=== PATIENT | female | born 1965 | race Caucasian/White ===

== ENCOUNTER 2023-09-16 10:28 | Outpatient (AMB) | payer OTHER, SELFPAY ==
--- NOTE | 2023-09-16 10:26 | MHC.PC.OV ---
Vital Signs 09/16/23 10:37 Height 5 ft 5.87 in Weight 123 lb 6 oz BMI 20.0 BP 112/74 Blood Pressure Location Lt brachial Position Sitting Respiration 12 Pulse 103 H Pulse Source Pulse Oximeter Temp 98 F Temp Source Oral Pulse Oximetry (%) 98 Oxygen Delivery Method Room Air Intake Visit Reasons: new patient also discharge fu Intake Note: New patient visit Deckhand Tuna Boat Required: No Allergies No Known Allergies Allergy (Verified 09/16/23 10:34) Medication List - Last Reconciled 09/16/23 by Etelvina Barney PA-C amlodipine 2.5 mg PO DAILY duloxetine 60 mg PO DAILY Tobacco use date assessed: 09/16/23 Dental Screening Dental Screen Date: 09/16/23 Did you have a dental visit in the last 12 months?: No Did you have a dental problem in the last 6 months where you did not have access to dental care?: No Was dental information given to patient?: Patient declined (has dentures) HPI new patient also discharge fu HPI Details Pt is a 58 y/o femal ewho presents today to establish care/hospital follow up. She was previously a patient at [facility] but unfortunately, her insurance changed and she was unable to be seen there. She states that she has not seen a PCP in about 8-10 months. She reports a significant past medical history of anxiety, hypertension, alcohol and tobacco abuse. On 09/02/23 she presented to [facility] ER with complaints of rectal bleeding. She states that she had had rectal bleeding on and off for 6 months and over the last 2 months have become more persistent. On CT they did note rectal wall irregular thickening with adjacent inflammatory change. Direct visualization with endoscopy is recommended to exclude a mass. Adjacent perirectal lymph nodes noted. Liquid Stool throughout small bowel and proximal colon. Nonspecific finding but can be seen with colitis. GI saw the patient in the hospital on 09/02 and performed the colonoscopy which showed a 5 cm fungating and spontaneously bleeding mass in the distal rectum; moderate diverticulosis throughout colon. On 09/03 surgery was consulted and she had a chest CT for staging which showed no specific evidence of metastatic disease, few nonspecific pulmonary nodules measuring up to 3 mm. 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 Circumferential low rectal mass, invading the anterior internal anal sphincter and lower vagina with resulting rectovaginal fistula inferiorly. She saw oncology this Wednesday, 09/12, for the first time. She is being set up for chemo, radiation and colorectal surgery. Psych: She states she has been very anxious sense the hospitalization. She state her oncologist gave her an rx for lorazepam. She is already on cymbalta. She states that she thinks she needs to go up on the medication or change the med because she finds it unhelpful. She states that her children and her mother have been helpful and supportive with the diagnosis. She has been having some stressors because her boyfriend is not handling this well. She states that he is asked her to move out of the house because he does not want to deal with the cancer. She denies any SI/HI. She does drink daily and has been drinking for the last 10 years. She has 6 beers a day and denies any hard alcohol. She states that when she was in the hospital she did not have any withdrawal symptoms. She does not want to quit drinking or smoking. She is aware that she needs to quit drinking and states that she will meet with an addiction counselor but she is not sure if she can actually do this. [facility] Medical History Underweight Prediabetes Major depression Elevated liver enzymes Benign hypertension Alcohol abuse Surgical History (Updated 09/16/23 @ 10:29 by Lara Donaldson CMA) Hx of fusion of cervical spine Hx of tonsillectomy Social History (Updated 09/16/23 @ 10:36 by Lara Donaldson CMA) Housing: House Patient Tobacco Use Status: Current everyday Tobacco user Cigarettes Per Day: 20 Years Smoked: 30 e-Cigarette/Vaping Use: Never Used Second Hand Smoke Exposure: No Substance Use Type: Marijuana service: No Current occupational status: unemployed Cognitive needs: No Hearing needs: No Vision needs: No Questionnaire PHQ-9 Over the last 2 weeks, how often have you been bothered by any of the following problems? 1. Little interest or pleasure in doing things: more than half the days 2. Feeling down, depressed, or hopeless: more than half the days 3. Trouble falling or staying asleep, or sleeping too much: more than half the days 4. Feeling tired or having little energy: more than half the days 5. Poor appetite or overeating: more than half the days 6. Feeling bad about yourself - or that you are a failure or have let yourself or your family down: more than half the days 7. Trouble concentrating on things, such as reading the newspaper or watching television: more than half the days 8. Moving or speaking so slowly that other people could have noticed. Or the opposite - being so fidgety or restless that you have been moving around a lot more than usual: more than half the days 9. Thoughts that you would be better off or of hurting yourself in some way: not at all Total score: 16 Depression Screening Interpretation: Positive Depression Screening Follow-up: Existing condition, In treatment, New Medication prescribed and Community Mental Health Worker F/U Depression Screening Done: Yes 04454 - PHQ-9 Billing: Yes Source: Developed by Drs. Brandyn Guardado, Melina Beltrán, George Grimaldo and colleagues, with an educational ariana from [employer]. AUDIT C Alcohol Use Questionnaire (AUDIT-C) 1. How often do you have a drink containing alcohol?: 4 or more times a week (daily) 2. How many drinks containing alcohol do you have on a typical day when you are drinking?: 5 or 6 3. How often do you have six or more drinks on one occasion?: Daily or almost daily Total Score: 10 Score Reviewed/Action Taken: Yes CRYSTAL-7 AMB Questionnaire CRYSTAL-7 Feeling nervous, anxious, or on edge: 3 = Nearly every day Not being able to stop or control worryin = More than half the days Worrying too much about different things: 2 = More than half the days Trouble relaxin = More than half the days Being so restless that it is hard to sit still: 2 = More than half the days Becoming easily annoyed or irritable: 2 = More than half the days Feeling afraid as if something awful might happen: 2 = More than half the days Total CRYSTAL-7 score (0-4 normal; 5-9 mild; 10-14 moderate; 15-21 severe): 15 Source: Developed by Drs. Brandyn Guardado, Melina Beltrán, George Grimaldo and colleagues, with an educational ariana from [employer]. CRYSTAL-7 Assessment Billing CRYSTAL-7 Assessment Tool: CRYSTAL-7 Assessment 76962 Physical exam (Primary Care) Vital Signs: Last Vital Signs Temp 98 F 09/16/23 10:37 Pulse 103 H 09/16/23 10:37 Resp 12 09/16/23 10:37 BP 112/74 09/16/23 10:37 Pulse Ox 98 09/16/23 10:37 Oxygen Delivery Method Room Air 09/16/23 10:37 BMI result Body Mass Index 20.0 Tobacco/Smoking Status: Tobacco use Status Tobacco use date assessed 09/16/23 09/16/23 10:40 Patient Tobacco Use Status Current everyday Tobacco 09/16/23 10:40 e-Cigarette/Vaping Use Never Used 09/16/23 10:40 Depression Screening Interpretation: Positive Depression Screening Follow-up: Existing condition, In treatment, New Medication prescribed and Community Mental Health Worker F/U Const Orientation/consciousness: patient oriented x3 HENMT Ears: hearing grossly normal bilaterally Neck Thyroid: Thyroid normal Lymphatic: no lymphadenopathy noted Resp Auscultation: clear to auscultation bilaterally Cardio Rate: regular rate Rhythm: regular rhythm Heart sounds: S1 normal heart sound present and S2 normal heart sound present GI Inspection: Yes normal to inspection Palpation (GI): Soft to palpation and Other GI palpation findings present (nontender, no cva tenderness) Auscultation: normoactive bowel sounds Rectal Exam - Female: deferred Skin General skin exam: no rashes or lesions noted Neuro General: patient oriented x3, gait normal and no focal motor deficits Assessment and Plan Assessment & Plan (1) Alcohol abuse: Code(s): F10.10 - Alcohol abuse, uncomplicated Plan: Referral to addiction Medicine placed (2) Major depression: Code(s): F32.9 - Major depressive disorder, single episode, unspecified Plan: We will discontinue Cymbalta and start Paxil. Discussed risks and benefits and adverse effects of the medication. 3-4 week follow up. (3) Rectal cancer: Code(s): C20 - Malignant neoplasm of rectum Plan: Notes from Oncology and surgery were requested. (4) Benign hypertension: Code(s): I10 - Essential (primary) hypertension Plan: Blood pressure controlled. Continue current regimen. Orders: Orders Lipid Panel Today C20 - Malignant neoplasm of rectum, F10.10 - Alcohol abuse, uncomplicated, F32.9 - Major depressive disorder, single episode, unspecified TSH reflex Free T4 Today C20 - Malignant neoplasm of rectum, F10.10 - Alcohol abuse, uncomplicated, F32.9 - Major depressive disorder, single episode, unspecified Complete Blood Count Auto Diff Today C20 - Malignant neoplasm of rectum, F10.10 - Alcohol abuse, uncomplicated, F32.9 - Major depressive disorder, single episode, unspecified Comprehensive Met. Panel Today C20 - Malignant neoplasm of rectum, F10.10 - Alcohol abuse, uncomplicated, F32.9 - Major depressive disorder, single episode, unspecified Vitamin B12 and Folate Today C20 - Malignant neoplasm of rectum, F10.10 - Alcohol abuse, uncomplicated, F32.9 - Major depressive disorder, single episode, unspecified IRON PROFILE Today C20 - Malignant neoplasm of rectum, F10.10 - Alcohol abuse, uncomplicated, F32.9 - Major depressive disorder, single episode, unspecified Referrals Addiction Medicine Referral C20 - Malignant neoplasm of rectum, F10.10 - Alcohol abuse, uncomplicated, F32.9 - Major depressive disorder, single episode, unspecified Behavioral Health Referral C20 - Malignant neoplasm of rectum, F10.10 - Alcohol abuse, uncomplicated, F32.9 - Major depressive disorder, single episode, unspecified Medications: New paroxetine HCl (Paxil) 10 mg PO DAILY 90 tabs 0RF Coding Level of Care Code New Pt Level 4 (70156) Complex EM visit Add On G2211 Diagnoses Alcohol abuse F10.10 Major depression F32.9 Rectal cancer C20 Benign hypertension I10 Additional Codes CRYSTAL-7 Assessment Billing - CRYSTAL-7 Assessment Tool: CRYSTAL-7 Assessment 73893 ([id number])
[2023-09-16 10:37] VITALS: BP 112/74; PULSE 103; RESP 12; TEMP 36.6; O2SAT 98
== END 2023-09-16 11:49 | disposition home or self-care (01) ==
PROVIDERS: PCP Physician Assistant; Visit Provider Physician Assistant
DX: C20 Malignant neoplasm of rectum (principal); F10.10 Alcohol abuse, uncomplicated; F32.9 Major depressive disorder, single episode, unspecified; I10 Essential (primary) hypertension
CPT/HCPCS: 96127; 99204; G2211

== ENCOUNTER 2023-11-24 13:51 | Outpatient (AMB) | payer OTHER, SELFPAY ==
--- NOTE | 2023-11-24 13:53 | MHC.PC.OV ---
Vital Signs 11/24/23 13:57 Height 5 ft 5.87 in Weight 127 lb 2 oz BMI 20.6 BP 96/64 Blood Pressure Location Lt brachial Position Sitting Pulse 113 H Pulse Source Pulse Oximeter Pulse Oximetry (%) 98 Oxygen Delivery Method Room Air Intake Visit Reasons: Medication follow up Intake Note: Medication follow up. Patient states she supposed to be on Duloxetine 90 mg. She lost her medication and has been out for 2 days. Allergies No Known Allergies Allergy (Verified 11/24/23 13:54) Medication List - Last Reconciled 11/24/23 by Etelvina Barney PA-C Tobacco use date assessed: 09/16/23 Dental Screening Dental Screen Date: 09/16/23 HPI Medication follow up HPI Details Patient is a 58-year-old female who presents today for a follow up. She is relatively new here and to me. She was recently diagnosed with rectal cancer, hypertension and has a history of depression and alcohol abuse. Psych: She is on Cymbalta 90 mg however was on 60 mg but states that she increased the dose on her own. I did refer her to behavioral health and addiction Medicine. She states she thinks she needs to go up on the dosage. Denies any SI/HI. Living with her 87 y/o mother right now. States her boyfriend of 10 years told her to move out. Her son moved home to help her and they are looking for a place together. She is completely sober and does not need help with this. Onc: She is following with oncology and GI for her rectal cancer. Following with [facility] and just started chemo and radiation. 8 days into 6 weeks. States that she is so far tolerating this well. CV: Blood pressure today in the office is 92/64. She is asymptomatic. She is on amlodipine 2.5 mg which started while she was hospitalized earlier this summer. -she forgot to get labs done prior to our visit. [facility] Medical History Underweight Prediabetes Major depression Elevated liver enzymes Benign hypertension Alcohol abuse Surgical History (Updated 09/16/23 @ 10:29 by Lara Donaldson CMA) Hx of fusion of cervical spine Hx of tonsillectomy Social History (Updated 09/16/23 @ 10:36 by Lara Donaldson CMA) Housing: House Patient Tobacco Use Status: Current everyday Tobacco user Cigarettes Per Day: 20 Years Smoked: 30 e-Cigarette/Vaping Use: Never Used Second Hand Smoke Exposure: No Substance Use Type: Marijuana service: No Current occupational status: unemployed Cognitive needs: No Hearing needs: No Vision needs: No Physical exam (Primary Care) Tobacco/Smoking Status: Tobacco use Status Tobacco use date assessed 09/16/23 09/16/23 10:40 Patient Tobacco Use Status Current everyday Tobacco 09/16/23 10:40 e-Cigarette/Vaping Use Never Used 09/16/23 10:40 Const Orientation/consciousness: patient oriented x3 HENMT Ears: hearing grossly normal bilaterally Neck Thyroid: Thyroid normal Lymphatic: no lymphadenopathy noted Resp Auscultation: clear to auscultation bilaterally Cardio Rate: regular rate Rhythm: regular rhythm Heart sounds: S1 normal heart sound present and S2 normal heart sound present Skin General skin exam: no rashes or lesions noted Neuro General: patient oriented x3, gait normal and no focal motor deficits Assessment and Plan Assessment & Plan (1) Generalized anxiety disorder: Code(s): F41.1 - Generalized anxiety disorder Plan: increase cymbalta. Advised to seek any emergent medical treatment should she develop any SI/HI. Short term follow up. Start hydroxyzine as needed. (2) Major depression: Code(s): F32.9 - Major depressive disorder, single episode, unspecified Qualifiers: Major depression recurrence: recurrent Active/Remission status: currently active Major depression episode severity: mild Qualified Code(s): F33.0 - Major depressive disorder, recurrent, mild Plan: As above (3) Benign hypertension: Code(s): I10 - Essential (primary) hypertension Plan: Discontinue amlodipine (4) Rectal cancer: Code(s): C20 - Malignant neoplasm of rectum Plan: Continue follow up with [facility] Medications: New hydroxyzine HCl 25 mg PO BID 30 days PRN 60 tabs 3RF itching duloxetine 60 mg PO BID 180 caps 1RF Coding Level of Care Code Est Pt Level 4 (23350) Complex EM visit Add On G2211 Diagnoses Generalized anxiety disorder F41.1 Mild episode of recurrent major depressive disorder F33.0 Major depression recurrence: recurrent Active/Remission status: currently active Major depression episode severity: mild Benign hypertension I10 Rectal cancer C20
[2023-11-24 13:57] VITALS: BP 96/64; PULSE 113; O2SAT 98; BMI 20.6
== END 2023-11-24 14:12 | disposition home or self-care (01) ==
PROVIDERS: PCP Physician Assistant; Visit Provider Physician Assistant
DX: F41.1 Generalized anxiety disorder (principal); F33.0 Major depressive disorder, recurrent, mild; I10 Essential (primary) hypertension; C20 Malignant neoplasm of rectum
CPT/HCPCS: 99214; G2211

== ENCOUNTER 2024-05-25 09:06 | Outpatient (AMB) | payer OTHER, SELFPAY ==
--- NOTE | 2024-05-25 09:12 | MHC.PC.OV ---
Vital Signs 05/25/24 09:21 Height 5 ft 5.87 in Weight 117 lb 8 oz BMI 19.0 BP 127/73 Blood Pressure Location Lt brachial Position Sitting Respiration 16 Pulse 91 Pulse Source Pulse Oximeter Temp 98.0 F Temp Source Oral Pulse Oximetry (%) 97 Oxygen Delivery Method Room Air Intake Visit Reasons: Vigilant culture for cancer Intake Note: patient here c/o having some vaginal discharge yellow color. Telegraph Dispatcher Required: No Is last menstrual period known: No Post menopausal: No Patient : No Allergies No Known Allergies Allergy (Verified 05/25/24 09:16) Tobacco use date assessed: 05/25/24 Dental Screening Dental Screen Date: 05/25/24 Did you have a dental visit in the last 12 months?: No Did you have a dental problem in the last 6 months where you did not have access to dental care?: No Was dental information given to patient?: No HPI HPI Comments History of Present Illness Details Patient is a 58-year-old female with a past medical history of rectal cancer, hypertension and has a history of depression and alcohol abuse. Reports few week history of yellowish vaginal discharge. No burning. No itching. No dysuria. No fevers, no rash Stopped chemo. No recent antibiotic Psych: She is on Cymbalta 90 mg however was on 60 mg but states that she increased the dose on her own. I did refer her to behavioral health and addiction Medicine. She states she thinks she needs to go up on the dosage. Denies any SI/HI. Living with her 87 y/o mother right now. States her boyfriend of 10 years told her to move out. Her son moved home to help her and they are looking for a place together. She is completely sober and does not need help with this. Onc: She is following with oncology and GI for her rectal cancer. Following with [facility] and just started chemo and radiation. 8 days into 6 weeks. States that she is so far tolerating this well. CV: Blood pressure today in the office is 92/64. She is asymptomatic. She is on amlodipine 2.5 mg which started while she was hospitalized earlier this summer. -she forgot to get labs done prior to our visit. ROS see HPI PHYSICAL EXAM: GENERAL: Alert and oriented x 3. NAD EYES: EOMI. Anicteric. HENT: Moist mucous membranes. No scleral icterus. No cervical lymphadenopathy. LUNGS: Clear to auscultation bilaterally. CARDIOVASCULAR: Regular rate and rhythm. No murmur. No JVD. ABDOMEN: Soft, non-tender +bs EXTREMITIES: No edema. Non-tender. SKIN: No rashes or lesions. Warm. NEUROLOGIC: No focal neurological deficits. CN II-XII grossly intact PSYCHIATRIC: Cooperative. Appropriate mood and affect [facility] Medical History Underweight Prediabetes Major depression Elevated liver enzymes Benign hypertension Alcohol abuse Surgical History (Updated 09/16/23 @ 10:29 by Lara Donaldson CMA) Hx of fusion of cervical spine Hx of tonsillectomy Social History (Updated 09/16/23 @ 10:36 by Lara Donaldson CMA) Housing: House Patient Tobacco Use Status: Current everyday Tobacco user Cigarettes Per Day: 20 Years Smoked: 30 e-Cigarette/Vaping Use: Never Used Second Hand Smoke Exposure: No Substance Use Type: Marijuana service: No Current occupational status: unemployed Cognitive needs: No Hearing needs: No Vision needs: No Physical exam (Primary Care) Vital Signs: Last Vital Signs Temp 98.0 F 05/25/24 09:21 Pulse 91 05/25/24 09:21 Resp 16 05/25/24 09:21 BP 127/73 05/25/24 09:21 Pulse Ox 97 05/25/24 09:21 Oxygen Delivery Method Room Air 05/25/24 09:21 BMI result Body Mass Index 19.0 Tobacco/Smoking Status: Tobacco use Status Tobacco use date assessed 05/25/24 05/25/24 09:22 Patient Tobacco Use Status Current everyday Tobacco 05/25/24 09:15 e-Cigarette/Vaping Use Never Used 05/25/24 09:15 Coding Level of Care Code Est Pt Level 4 (87067) Diagnoses Vaginal discharge N89.8 Assessment & Plan Assessment & Plan (1) Vaginal discharge: Code(s): N89.8 - Other specified noninflammatory disorders of vagina Category: Medical Plan: Patient will self swab for BV Empiric treatment for yeast infection Check UA/UCx If no resolution, obgyn specialist referral Orders: Orders UA CC w/rflx Micro + Cult Today N89.8 - Other specified noninflammatory disorders of vagina Bacterial Vaginosis Panel Today N89.8 - Other specified noninflammatory disorders of vagina Medications: New fluconazole may repeat second dose 72 hrs after first dose if symptoms persist 150 mg PO Q3D 2 tabs 0RF
[2024-05-25 09:21] VITALS: BP 127/73; PULSE 91; RESP 16; TEMP 36.7; O2SAT 97; BMI 19.0
--- OUTSIDE RECORDS SUMMARY | 2024-05-25 10:05 | XMS_ITS | Encounter Summary ---
Author Organization [facility] Address [address] [place] [address] Phone Care Team Providers Care Interface Engineer Name Role Phone Etelvina Barney PA-C Primary Care Provider + Encounter Details Date Type Department Care Team (Late st Contact Info) Description 02/02/2024 Documentation Only [facility] [place], [address] [place] [address] Yecenia Meeks [address] [place] [address] Social History Tobacco Use Types Packs/Day Years Used Date Smoking Tobacco: Every Day Cigarettes Smokeless Tobacco: Never Comments Unknown Sex and Gender Information Value Date Recorded Sex Assigned at Not on file Legal Sex Female 9:32 AM EDT Gender Identity Not on file Sexual Orientation Not on file documented as of this encounter Plan of Treatment Not on file documented as of this encounter Visit Diagnoses Not on filedocumented in this encounter Care Teams Interface Engineer Relationship Specialty Start Date End Date Etelvina Barney PA-C [address] [place] [id number] PCP - General Physician Federal Judge 12/21/23 documented as of this encounter
--- OUTSIDE RECORDS SUMMARY | 2024-05-25 10:05 | XMS_ITS | Encounter Summary ---
Author Organization [facility] Address [address] [place] [address] Phone Care Team Providers Care Agricultural Commodities Grader Name Role Phone Etelvina Barney PA-C Primary Care Provider + Encounter Details Date Type Department Care Team (Late st Contact Info) Description 02/02/2024 Documentation Only [facility] [place], [address] [place] [address] Yecenia Meeks [address] [place] [address] Social History Tobacco Use Types [...] on filedocumented in this encounter Care Teams Agricultural Commodities Grader Relationship Specialty Start Date End Date Etelvina Barney PA-C [address] [place] [phone] PCP - General Physician Driver/Guide 12/21/23 documented as of this encounter
--- OUTSIDE RECORDS SUMMARY | 2024-05-25 10:05 | XMS_ITS | Encounter Summary ---
Author Organization [facility] Address [address] [place] [address] Phone Care Team Providers Care Art Manager Name Role Phone Etelvina Barney PA-C Primary Care Provider + Encounter Details Date Type Department Care Team (Late st Contact Info) Description 02/02/2024 Documentation Only [facility] [place], [address] [place] [address] Yecenia Meeks [address] [place] [address] Social History Tobacco Use Types [...] on filedocumented in this encounter Care Teams Art Manager Relationship Specialty Start Date End Date Etelvina Barney PA-C [address] [place] [phone] PCP - General Physician Aitchbone Breaker 12/21/23 documented as of this encounter
--- OUTSIDE RECORDS SUMMARY | 2024-05-25 10:05 | XMS_ITS | Encounter Summary ---
Author Organization [facility] Address [address] [place] [address] Phone Care Team Providers Care Manager Professional Development Name Role Phone Etelvina Barney PA-C Primary Care Provider + Encounter Details Date Type Department Care Team (Late st Contact Info) Description 02/02/2024 Documentation Only [facility] [place], [address] [place] [address] Yecenia Meeks [address] [place] [address] Social History Tobacco Use Types [...] on filedocumented in this encounter Care Teams Manager Professional Development Relationship Specialty Start Date End Date Etelvina Barney PA-C [address] [place] [phone] PCP - General Physician Grocery Manager 12/21/23 documented as of this encounter
--- OUTSIDE RECORDS SUMMARY | 2024-05-25 10:05 | XMS_ITS | Encounter Summary ---
Author Organization [facility] Address [address] [place] [address] Phone Care Team Providers Care Bakery Team Member Name Role Phone Etelvina Barney PA-C Primary Care Provider + Encounter Details Date Type Department Care Team (Late st Contact Info) Description 02/02/2024 Documentation Only [facility] [place], [address] [place] [address] Yecenia Meeks [address] [place] [address] Social History Tobacco Use Types [...] on filedocumented in this encounter Care Teams Bakery Team Member Relationship Specialty Start Date End Date Etelvina Barney PA-C [address] [place] [phone] PCP - General Physician Wood Tile Installation Helper 12/21/23 documented as of this encounter
--- OUTSIDE RECORDS SUMMARY | 2024-05-25 10:05 | XMS_ITS | Encounter Summary ---
Author Organization [facility] Address [address] [place] [address] Phone Care Team Providers Care Supervisor Heat Treating Name Role Phone Etelvina Barney PA-C Primary Care Provider + Encounter Details Date Type Department Care Team (Late st Contact Info) Description 02/02/2024 Documentation Only [facility] [place], [address] [place] [address] Yecenia Meeks [address] [place] [address] Social History Tobacco Use Types [...] on filedocumented in this encounter Care Teams Supervisor Heat Treating Relationship Specialty Start Date End Date Etelvina Barney PA-C [address] [place] [phone] PCP - General Physician Smoking Pipe Mounter 12/21/23 documented as of this encounter
--- OUTSIDE RECORDS SUMMARY | 2024-05-25 10:05 | XMS_ITS | Encounter Summary ---
Author Organization [facility] Address [address] [place] [address] Phone Care Team Providers Care Cable Television Installer Name Role Phone Etelvina Barney PA-C Primary Care Provider + Encounter Details Date Type Department Care Team (Late st Contact Info) Description 02/02/2024 Documentation Only [facility] [place], [address] [place] [address] Yecenia Meeks [address] [place] [address] Social History Tobacco Use Types [...] on filedocumented in this encounter Care Teams Cable Television Installer Relationship Specialty Start Date End Date Etelvina Barney PA-C [address] [place] [phone] PCP - General Physician Line Maintainer 12/21/23 documented as of this encounter
--- OUTSIDE RECORDS SUMMARY | 2024-05-25 10:05 | XMS_ITS | Encounter Summary ---
Author Organization [facility] Address [address] [place] [address] Phone Care Team Providers Care Classics Professor Name Role Phone Etelvina Barney PA-C Primary Care Provider + Encounter Details Date Type Department Care Team (Late st Contact Info) Description 02/02/2024 Documentation Only [facility] [place], [address] [place] [address] Yecenia Meeks [address] [place] [address] Social History Tobacco Use Types [...] on filedocumented in this encounter Care Teams Classics Professor Relationship Specialty Start Date End Date Etelvina Barney PA-C [address] [place] [phone] PCP - General Physician Conservation Technician 12/21/23 documented as of this encounter
--- OUTSIDE RECORDS SUMMARY | 2024-05-25 10:05 | XMS_ITS | Encounter Summary ---
Author Organization [facility] Address [address] [place] [address] Phone Care Team Providers Care Boiler House Mechanic Name Role Phone Etelvina Barney PA-C Primary Care Provider + Encounter Details Date Type Department Care Team (Late st Contact Info) Description 02/02/2024 Documentation Only [facility] [place], [address] [place] [address] Yecenia Meeks [address] [place] [address] Social History Tobacco Use Types [...] on filedocumented in this encounter Care Teams Boiler House Mechanic Relationship Specialty Start Date End Date Etelvina Barney PA-C [address] [place] [phone] PCP - General Physician Cytopathologist 12/21/23 documented as of this encounter
--- OUTSIDE RECORDS SUMMARY | 2024-05-25 10:05 | XMS_ITS | Clinical Summary ---
Author Organization [facility] Address [address] [place] [address] Care Team Providers Care Automatic Engraver Name Role Phone Etelvina Barney PA-C Primary Care Provider + Allergies No known active allergies Medications LORazepam (ATIVAN) 0.5 MG tablet Take 0.5 mg by mouth every 8 (eight) hours if needed for anxiety Active capecitabine (XELODA) 500 MG chemo tablet Swallow whole with water. Do not crush or cut. Active DULoxetine (CYMBALTA) [address] capsule Take 90 mg by mouth 1 (one) time each day Do not crush or chew. Active mirtazapine (REMERON) 7.5 MG tablet Take 7.5 mg by mouth every night Active morphine (MSIR) 15 MG tablet Take 15 mg by mouth in the morning and 15 mg in the evening. Active nicotine (NICODERM CQ) 14 MG/24HR Place 1 patch on the skin 1 (one) time each day at the same time Active OLANZapine (ZyPREXA) 2.5 MG tablet Take 2.5 mg by mouth every night Active SENNA PO Take 2 tablets by mouth at bed time Active acetaminophen (TYLENOL) 325 MG tablet Take 325 mg by mouth every 6 (six) hours Active Active Problems Problem Noted Date Diagnosed Date Prediabetes Hypertriglyceridemia History of acute kidney injury Decrease in appetite Cellulitis Benign essential hypertension Immunizations Name Administration Dates Next Due Hepatitis B 01/26/2011 Moderna SARS-COV-2 03/17/2021,08/05/2020, 021 Tdap 12/10/2022 Family History Medical History Relation Comments Colonic polyp Brother Liver disease Father Hypertension Mother Cancer Paternal Grandmother Relation Status Comments Brother Father Mother Paternal Grandmother Social History Tobacco Use Types Packs/Day Years Used Date Smoking Tobacco: Every Day Cigarettes Smokeless Tobacco: Never Comments Unknown Sex and Gender Information Value Date Recorded Sex Assigned at Not on file Legal Sex Female 9:32 AM EDT Gender Identity Not on file Sexual Orientation Not on file Last Filed Vital Signs Vital Sign Reading Time Taken Comments Blood Pressure 115/76 02/03/2024 4:25 PM EST Pulse - - Temperature - - Respiratory Rate - - Oxygen Saturation - - Inhaled Oxygen Concentration - - Weight 56.5 kg (124 lb 9.6 oz) 02/03/2024 4:25 P M EST Height - - Body Mass Index - - Plan of Treatment Health Maintenance Due Date Last Done Comments Breast Cancer Screening 1965 Pneumococcal Vaccine: Pediat rics (0 to 5 Years) and At-Risk Patients (6 to 64 Years) (1 of 2 - PCV) 1971 Hepatitis B Vaccine (1 of 3 - 19+ 3-dose series) 05/0501/26/2011 Colorectal Cancer Screening: Annual FOBT 2014 Colorectal Cancer Screening: Colonoscopy 2014 Colorectal Cancer Screening: Sigmoidoscopy 2014 Influenza Vaccine (#1) [address] [place] [address] [place] [address] MEDICAID Care Teams Automatic Engraver Relationship Specialty Start Date End Date Etelvina Barney PA-C [address] [place] [address] PCP - General Physician Senior Maintenance Mechanic 12/21/23
--- OUTSIDE RECORDS SUMMARY | 2024-05-25 10:05 | XMS_ITS | Encounter Summary ---
Author Organization [facility] Address [address] [place] [address] Phone Care Team Providers Care Electronics Inspector Name Role Phone Etelvina Barney PA-C Primary Care Provider + Encounter Details Date Type Department Care Team (Late st Contact Info) Description 02/02/2024 Documentation Only [facility] [place], [address] [place] [address] Yecenia Meeks [address] [place] [address] Social History Tobacco Use Types [...] on filedocumented in this encounter Care Teams Electronics Inspector Relationship Specialty Start Date End Date Etelvina Barney PA-C [address] [place] [address] [phone] PCP - General Physician Trader Fixed Income 12/21/23 documented as of this encounter
--- OUTSIDE RECORDS SUMMARY | 2024-05-25 10:05 | XMS_ITS | Encounter Summary ---
Author Organization [facility] Address [address] [place] [address] Phone Care Team Providers Care Environmental Director Name Role Phone Etelvina Barney PA-C Primary Care Provider + Encounter Details Date Type Department Care Team (Late st Contact Info) Description 02/02/2024 Documentation Only [facility] [place], [address] [place] [address] Yecenia Meeks [address] [place] [address] Social History Tobacco Use Types [...] on filedocumented in this encounter Care Teams Environmental Director Relationship Specialty Start Date End Date Etelvina Barney PA-C [address] [place] [phone] PCP - General Physician Managed Services Sales Consultant 12/21/23 documented as of this encounter
--- OUTSIDE RECORDS SUMMARY | 2024-05-25 10:05 | XMS_ITS | Encounter Summary ---
Author Organization [facility] Address [address] [place] [address] Phone Care Team Providers Care Director Of Fundraising Name Role Phone Etelvina Barney PA-C Primary Care Provider + Encounter Details Date Type Department Care Team (Late st Contact Info) Description 02/02/2024 Documentation Only [facility] [place], [address] [place] [address] Yecenia Meeks [address] [place] [address] Social History Tobacco Use Types [...] on filedocumented in this encounter Care Teams Director Of Fundraising Relationship Specialty Start Date End Date Etelvina Barney PA-C [address] [place] [phone] PCP - General Physician Educational Administrator 12/21/23 documented as of this encounter
--- OUTSIDE RECORDS SUMMARY | 2024-05-25 10:05 | XMS_ITS | Encounter Summary ---
Author Organization [facility] Address [address] [place] [address] Phone Care Team Providers Care School Vocational Educator Name Role Phone Etelvina Barney PA-C Primary Care Provider + Encounter Details Date Type Department Care Team (Late st Contact Info) Description 02/02/2024 Documentation Only [facility] [place], [address] [place] [address] Yecenia Meeks [address] [place] [address] Social History Tobacco Use Types [...] on filedocumented in this encounter Care Teams School Vocational Educator Relationship Specialty Start Date End Date Etelvina Barney PA-C [address] [place] [address] PCP - General Physician Heavy Machinery Operator 12/21/23 documented as of this encounter
--- OUTSIDE RECORDS SUMMARY | 2024-05-25 10:05 | XMS_ITS | Encounter Summary ---
Author Organization [facility] Address [address] [place] [address] Phone Care Team Providers Care Buhr Dresser Name Role Phone Etelvina Barney PA-C Primary Care Provider + Encounter Details Date Type Department Care Team (Late st Contact Info) Description 02/02/2024 Documentation Only [facility] [place], [address] [place] [address] Yecenia Meeks [address] [place] [address] Social History Tobacco Use Types [...] on filedocumented in this encounter Care Teams Buhr Dresser Relationship Specialty Start Date End Date Etelvina Barney PA-C [address] [place] [phone] PCP - General Physician Sql Ssrs Developer 12/21/23 documented as of this encounter
== END 2024-05-25 09:53 | disposition home or self-care (01) ==
PROVIDERS: PCP Physician Assistant; Visit Provider Internal Medicine
DX: N89.8 Other specified noninflammatory disorders of vagina (principal)

== ENCOUNTER → 2024-05-25 09:06 | Outpatient (BNVA) | payer OTHER, SELFPAY | PROVIDERS: PCP Physician Assistant; Visit Provider Internal Medicine | DX: N89.8 Other specified noninflammatory disorders of vagina (principal); I10 Essential (primary) hypertension; Z85.048 Personal history of other malignant neoplasm of rectum, rectosigmoid junction, and anus; Z79.899 Other long term (current) drug therapy | CPT/HCPCS: 99212 ==

== ENCOUNTER 2024-05-25 09:54 | Outpatient (REF) | payer OTHER, SELFPAY ==
--- OUTSIDE RECORDS SUMMARY | 2024-05-25 11:28 | XMS_ITS | Encounter Summary ---
Author Organization [facility] Address [address] [place] [address] Phone Care Team Providers Care Sustainable Design Coordinator Name Role Phone Etelvina Barney PA-C Primary Care Provider + Encounter Details Date Type Department Care Team (Late st Contact Info) Description 02/02/2024 Documentation Only [facility] [place], [address] [place] [address] Yecenia Meeks [address] [place] [address] Social History Tobacco Use Types [...] on filedocumented in this encounter Care Teams Sustainable Design Coordinator Relationship Specialty Start Date End Date Etelvina Barney PA-C [address] [place] [address] [phone] PCP - General Physician Paper Baling Machine Operator 12/21/23 documented as of this encounter
--- OUTSIDE RECORDS SUMMARY | 2024-05-25 11:28 | XMS_ITS | Encounter Summary ---
Author Organization [facility] Address [address] [place] [address] Phone Care Team Providers Care Diet Supervisor Name Role Phone Etelvina Barney PA-C Primary Care Provider + Encounter Details Date Type Department Care Team (Late st Contact Info) Description 02/02/2024 Documentation Only [facility] [place], [address] [place] [address] Yecenia Meeks [address] [place] [address] Social History Tobacco Use Types [...] on filedocumented in this encounter Care Teams Diet Supervisor Relationship Specialty Start Date End Date Etelvina Barney PA-C [address] [place] [address] [phone] PCP - General Physician Order Caller 12/21/23 documented as of this encounter
--- OUTSIDE RECORDS SUMMARY | 2024-05-25 11:28 | XMS_ITS | Encounter Summary ---
Author Organization [facility] Address [address] [place] [address] Phone Care Team Providers Care Electromedical Service Engineer Name Role Phone Etelvina Barney PA-C Primary Care Provider + Encounter Details Date Type Department Care Team (Late st Contact Info) Description 02/02/2024 Documentation Only [facility] [place], [address] [place] [address] Yecenia Meeks [address] [place] [address] Social History Tobacco Use Types [...] on filedocumented in this encounter Care Teams Electromedical Service Engineer Relationship Specialty Start Date End Date Etelvina Barney PA-C [address] [place] [phone] PCP - General Physician Instrumental Musician 12/21/23 documented as of this encounter
--- OUTSIDE RECORDS SUMMARY | 2024-05-25 11:28 | XMS_ITS | Encounter Summary ---
Author Organization [facility] Address [address] [place] [address] Phone Care Team Providers Care Value Engineer Name Role Phone Etelvina Barney PA-C Primary Care Provider + Encounter Details Date Type Department Care Team (Late st Contact Info) Description 02/02/2024 Documentation Only [facility] [place], [address] [place] [address] Yecenia Meeks [address] [place] [address] Social History Tobacco Use Types [...] on filedocumented in this encounter Care Teams Value Engineer Relationship Specialty Start Date End Date Etelvina Barney PA-C [address] [place] [phone] PCP - General Physician Retail Banking Manager 12/21/23 documented as of this encounter
--- OUTSIDE RECORDS SUMMARY | 2024-05-25 11:28 | XMS_ITS | Encounter Summary ---
Author Organization [facility] Address [address] [place] [address] Phone Care Team Providers Care Last Scourer Name Role Phone Etelvina Barney PA-C Primary Care Provider + Encounter Details Date Type Department Care Team (Late st Contact Info) Description 02/02/2024 Documentation Only [facility] [place], [address] [place] [address] Yecenia Meeks [address] [place] [address] Social History Tobacco Use Types [...] on filedocumented in this encounter Care Teams Last Scourer Relationship Specialty Start Date End Date Etelvina Barney PA-C [address] [place] [phone] PCP - General Physician Senior Professional Services Consultant 12/21/23 documented as of this encounter
--- OUTSIDE RECORDS SUMMARY | 2024-05-25 11:28 | XMS_ITS | Encounter Summary ---
Author Organization [facility] Address [address] [place] [address] Phone Care Team Providers Care Patient Financial Counselor Name Role Phone Etelvina Barney PA-C Primary Care Provider + Encounter Details Date Type Department Care Team (Late st Contact Info) Description 02/02/2024 Documentation Only [facility] [place], [address] [place] [address] Yecenia Meeks [address] [place] [address] Social History Tobacco Use Types [...] on filedocumented in this encounter Care Teams Patient Financial Counselor Relationship Specialty Start Date End Date Etelvina Barney PA-C [address] [place] [phone] PCP - General Physician Credit Historian 12/21/23 documented as of this encounter
--- OUTSIDE RECORDS SUMMARY | 2024-05-25 11:28 | XMS_ITS | Encounter Summary ---
Author Organization [facility] Address [address] [place] [address] Phone Care Team Providers Care Stage Set Up Worker Name Role Phone Etelvina Barney PA-C Primary Care Provider + Encounter Details Date Type Department Care Team (Late st Contact Info) Description 02/02/2024 Documentation Only [facility] [place], [address] [place] [address] Yecenia Meeks [address] [place] [address] Social History Tobacco Use Types [...] on filedocumented in this encounter Care Teams Stage Set Up Worker Relationship Specialty Start Date End Date Etelvina Barney PA-C [address] [place] [phone] PCP - General Physician Object Oriented Developer 12/21/23 documented as of this encounter
--- OUTSIDE RECORDS SUMMARY | 2024-05-25 11:29 | XMS_ITS | Encounter Summary ---
Author Organization [facility] Address [address] [place] [address] Phone Care Team Providers Care Wood Hacker Name Role Phone Etelvina Barney PA-C Primary Care Provider + Encounter Details Date Type Department Care Team (Late st Contact Info) Description 02/02/2024 Documentation Only [facility] [place], [address] [place] [address] Yecenia Meeks [address] [place] [address] Social History Tobacco Use Types [...] on filedocumented in this encounter Care Teams Wood Hacker Relationship Specialty Start Date End Date Etelvina Barney PA-C [address] [place] [address] PCP - General Physician Project Archivist 12/21/23 documented as of this encounter
--- OUTSIDE RECORDS SUMMARY | 2024-05-25 11:29 | XMS_ITS | Encounter Summary ---
Author Organization [facility] Address [address] [place] [address] Phone Care Team Providers Care Customer Resource Specialist Name Role Phone Etelvina Barney PA-C Primary Care Provider + Encounter Details Date Type Department Care Team (Late st Contact Info) Description 02/02/2024 Documentation Only [facility] [place], [address] [place] [address] Yecenia Meeks [address] [place] [address] Social History Tobacco Use Types [...] on filedocumented in this encounter Care Teams Customer Resource Specialist Relationship Specialty Start Date End Date Etelvina Barney PA-C [address] [place] [address] [phone] PCP - General Physician Middle School Resource Teacher 12/21/23 documented as of this encounter
--- OUTSIDE RECORDS SUMMARY | 2024-05-25 11:29 | XMS_ITS | Encounter Summary ---
Author Organization [facility] Address [address] [place] [address] Phone Care Team Providers Care Machine Ii Trimmer Name Role Phone Etelvina Barney PA-C Primary Care Provider + Encounter Details Date Type Department Care Team (Late st Contact Info) Description 02/02/2024 Documentation Only [facility] [place], [address] [place] [address] Yecenia Meeks [address] [place] [address] Social History Tobacco Use Types [...] on filedocumented in this encounter Care Teams Machine Ii Trimmer Relationship Specialty Start Date End Date Etelvina Barney PA-C [address] [place] [phone] PCP - General Physician Welding Machine Operator Helper Arc 12/21/23 documented as of this encounter
--- OUTSIDE RECORDS SUMMARY | 2024-05-25 11:29 | XMS_ITS | Encounter Summary ---
Author Organization [facility] Address [address] [place] [address] Phone Care Team Providers Care Dental Laboratory Worker Name Role Phone Etelvina Barney PA-C Primary Care Provider + Encounter Details Date Type Department Care Team (Late st Contact Info) Description 02/02/2024 Documentation Only [facility] [place], [address] [place] [address] Yecenia Meeks [address] [place] [address] Social History Tobacco Use Types [...] on filedocumented in this encounter Care Teams Dental Laboratory Worker Relationship Specialty Start Date End Date Etelvina Barney PA-C [address] [place] [address] [phone] PCP - General Physician Integration Assistant 12/21/23 documented as of this encounter
--- OUTSIDE RECORDS SUMMARY | 2024-05-25 11:29 | XMS_ITS | Clinical Summary ---
Author Organization [facility] Address [address] [place] [address] Care Team Providers Care Epoxy Coatings Installer Name Role Phone Etelvina Barney PA-C [...] Sigmoidoscopy 2014 Influenza Vaccine (#1) [address] [place] [place] [address] MEDICAID Care Teams Epoxy Coatings Installer Relationship Specialty Start Date End Date Etelvina Barney PA-C [address] [place] [phone] PCP - General Physician Lye Treater 12/21/23
--- OUTSIDE RECORDS SUMMARY | 2024-05-25 11:29 | XMS_ITS | Encounter Summary ---
Author Organization [facility] Address [address] [place] [address] Phone Care Team Providers Care Oil Distributor Tender Name Role Phone Etelvina Barney PA-C Primary Care Provider + Encounter Details Date Type Department Care Team (Late st Contact Info) Description 02/02/2024 Documentation Only [facility] [place], [address] [place] [address] Yecenia Meeks [address] [place] [address] Social History Tobacco Use Types [...] on filedocumented in this encounter Care Teams Oil Distributor Tender Relationship Specialty Start Date End Date Etelvina Barney PA-C [address] [place] [phone] PCP - General Physician Shipping & Receiving Lead 12/21/23 documented as of this encounter
--- OUTSIDE RECORDS SUMMARY | 2024-05-25 11:29 | XMS_ITS | Encounter Summary ---
Author Organization [facility] Address [address] [place] [address] Phone Care Team Providers Care [id number]/M60 Tank Driver Name Role Phone Etelvina Barney PA-C Primary Care Provider + Encounter Details Date Type Department Care Team (Late st Contact Info) Description 02/02/2024 Documentation Only [facility] [place], [address] [place] [address] Yecenia Meeks [address] [place] [address] Social History Tobacco Use Types [...] on filedocumented in this encounter Care Teams [id number]/[id number] Tank Driver Relationship Specialty Start Date End Date Etelvina Barney PA-C [address] [place] [address] [phone] PCP - General Physician Supervisor [place] 12/21/23 documented as of this encounter
--- OUTSIDE RECORDS SUMMARY | 2024-05-25 11:29 | XMS_ITS | Encounter Summary ---
Author Organization [facility] Address [address] [place] [address] Phone Care Team Providers Care Binding Cementer French Cord Name Role Phone Eetlvina Barney PA-C Primary Care Provider + Encounter Details Date Type Department Care Team (Late st Contact Info) Description 02/02/2024 Documentation Only [facility] [place], [address] [place] [address] Yecenia Meeks [address] [place] [address] Social History Tobacco Use Types [...] on filedocumented in this encounter Care Teams Binding Cementer French Cord Relationship Specialty Start Date End Date Etelvina Barney PA-C [address] [place] [phone] PCP - General Physician Bin Tripper Operator 12/21/23 documented as of this encounter
[2024-05-25 12:03] LABS: Appearance Urine Clear; Color Urine Yellow; Glucose Urine UA Negative (Negative); Leukocyte Esterase Urine Large (3+) (Negative); Nitrite Urine Negative (Negative); Specific Gravity - Urine <= 1.005 (1.005-1.025); UMIC TRIGGER UACC YES; Urine Blood Negative (Negative); Urine Ketones Negative (Negative); Urine Protein Negative (Neg-Trace)
[2024-05-25 12:06] LABS: Bacteria Urine None Seen (None Seen); Hyaline Casts Urine 0-2 /LPF (0-2); RBC Urine 0-2 /HPF (0-2); Squamous Epithelial Cell Urine 0-2 /HPF (0-2); UACC Culture Trigger YES; WBC Urine 21-50 /HPF (0-5)
[2024-05-25 17:12] LABS: Bacterial Vaginosis PCR POSITIVE (Negative); Candida Group PCR NOT DETECTED (Not Detect); Candida glab krusei PCR DETECTED (Not Detect); Trichomonas vaginalis PCR NOT DETECTED (Not Detect)
== END 2024-05-25 09:55 | disposition home or self-care (01) ==
LOC: HO.WFDLDS 09:54
PROVIDERS: Visit Provider Internal Medicine
DX: N89.8 Other specified noninflammatory disorders of vagina (principal)
CPT/HCPCS: 81001; 81003; 81515; 87086

== ENCOUNTER 2024-10-26 13:34 | Outpatient (AMB) | payer OTHER, SELFPAY ==
--- OUTSIDE RECORDS SUMMARY | 2024-10-26 13:37 | XMS_ITS | Encounter Summary ---
Author Organization [facility] Address [address] [place] [address] Phone Care Team Providers Care Environmental Monitoring Specialist Name Role Phone Etelvina Barney PA-C Primary Care Provider + Encounter Details Date Type Department Care Team (Late st Contact Info) Description 02/02/2024 Documentation Only [facility], [address] [place] [address] Yecenia Meeks [address] [place] [address] Social History Tobacco Use Types [...] filedocumented in this encounter Care Teams Environmental Monitoring Specialist Relationship Specialty Start Date End Date Etelvina Barney PA-C [address] [place] [address] PCP - General Physician House Officer 12/21/23 documented as of this encounter
--- NOTE | 2024-10-26 13:43 | A.OFFPC_ITS ---
Vital Signs 10/26/24 13:45 Height 5 ft 5.87 in Weight 111 lb BMI 18.0 BP 116/84 Blood Pressure Location Lt brachial Position Sitting Respiration 14 Pulse 114 H Pulse Source Pulse Oximeter Pulse Oximetry (%) 98 Oxygen Delivery Method Room Air Intake Visit Reasons: Anxiety Intake Note: Anxiety Allergies No Known Allergies Allergy (Verified 10/26/24 13:43) Medication List - Last Reconciled 10/26/24 by Etelvina Barney PA-C duloxetine 60 mg PO BID fluconazole 150 mg PO Q3D 2 doses nicotine 1 patch topical DAILY pregabalin 50 mg PO BID Tobacco use date assessed: 10/26/24 Dental Screening Dental Screen Date: 05/25/24 HPI Anxiety HPI Details Patient is a 59-year-old female who presents today for a follow up. She was diagnosed with rectal cancer, hypertension and has a history of depression and alcohol abuse. Psych: She is on Cymbalta 60 mg b.i.d.. She has had a prescription of lorazepam a couple times this year for anxiety related to health, scans and just overall panic attacks. Last year I did refer her to behavioral health and addiction Medicine as she says that she did not follow up with them. She says that she just had too much going on but she is ready to follow up. At our last visit she had given up alcohol for about a year and she states that she is drinking but only socially now. She says that she will only have 1 or 2 drinks if she goes out but overall is trying to avoid alcohol. She states that she has had some recent big stressors that her daughter is now in rehab in her son is also struggling with the addiction. Her daughter was recently involved in a head-on crash due to intoxication and she states that this has been very stressful for her. She is okay and healing but now needs to deal with her addiction. She is excited that today she is getting a new apartment to live with her daughter, grandson, son and herself. She is finally leaving her boyfriend Onc: She was supposed to get a ct pet this morning but the machine was down. [place] [facility] [place] had [place] colect[place], chemo and radiation. She is waiting to see how she is responding to the treatment. CV: Blood pressure today in the office is 116/84. -she forgot to get labs done prior to ou r visit. [facility] Medical History Underweight Prediabetes Major depression Elevated liver enzymes Benign hypertension Alcohol abuse Surgical History (Updated 09/16/23 @ 10:29 by Lara Donaldson CMA) Hx of fusion of cervical spine Hx of tonsillectomy Social History (Updated 09/16/23 @ 10:36 by Lara Donaldson CMA) Housing: House Patient Tobacco Use Status: Current everyday Tobacco user Cigarettes Per Day: 20 Years Smoked: 30 e-Cigarette/Vaping Use: Never Used Second Hand Smoke Exposure: No Substance Use Type: Marijuana service: No Current occupational status: unemployed Cognitive needs: No Hearing needs: No Vision needs: No Questionnaire PHQ-9 Over the last 2 weeks, how often have you been bothered by any of the following problems? 1. Little interest or pleasure in doing things: not at all 2. Feeling down, depressed, or hopeless: not at all 3. Trouble falling or staying asleep, or sleeping too much: not at all 4. Feeling tired or having little energy: nearly every day 5. Poor appetite or overeating: nearly every day 6. Feeling bad about yourself - or that you are a failure or have let yourself or your family down: not at all 7. Trouble concentrating on things, such as reading the newspaper or watching television: not at all 8. Moving or speaking so slowly that other people could have noticed. Or the opposite - being so fidgety or restless that you have been moving around a lot more than usual: not at all 9. Thoughts that you would be better off or of hurting yourself in some way: not at all Total score: 6 Depression Screening Interpretation: Positive Depression Screening Follow-up: Existing condition and In treatment Depression Screening Done: Yes 25656 - PHQ-9 Billing: Yes Source: Developed by Drs. Brandyn Guardado, Melina Beltrán, George Grimaldo and colleagues, with an educational ariana from [employer]. Thrive Questionnaire Date Thrive assessed: 10/26/24 I am a: Patient What is your living situation today?: I have a steady place to live Within the past 12 months, did the food you bought not last and you didn't have the money to get more?: Often true Within the past 12 months, did you worry whether your food would run out before you got money to buy more?: Often true Do you have trouble paying for medicines?: No Do you have trouble getting transportation to medical appointments?: No Do you have trouble paying your heating and electricity bill?: No Do you have trouble taking care of your child, family member or friend?: No Do you have trouble with day-to-day activities such as bathing, preparing meals, shopping, managing finances, etc.?: No Are you currently unemployed and looking for a job?: No Are you interested in more education?: No Please select the resources that you would like help with: Food and Amitree Currently or been in a relationship where the following occur: I choose not to answer THRIVE Score: 2 AUDIT C Alcohol Use Questionnaire (AUDIT-C) 1. How often do you have a drink containing alcohol?: Monthly or less 2. How many drinks containing alcohol do you have on a typical day when you are drinking?: 1 or 2 3. How often do you have six or more drinks on one occasion?: Never Total Score: 1 CRYSTAL-7 AMB Questionnaire CRYSTAL-7 Date CRYSTAL - 7 assessed: 10/26/24 Feeling nervous, anxious, or on edge: 3 = Nearly every day Not being able to stop or control worryin = Nearly every day Worrying too much about different things: 3 = Nearly every day Trouble relaxin = Not at all Being so restless that it is hard to sit still: 0 = Not at all Becoming easily annoyed or irritable: 0 = Not at all Feeling afraid as if something awful might happen: 3 = Nearly every day Total CRYSTAL-7 score (0-4 normal; 5-9 mild; 10-14 moderate; 15-21 severe): 12 Source: Developed by Drs. Brandyn Guardado, Melina Beltrán, George Grimaldo and colleagues, with an educational ariana from [employer]. CRYSTAL-7 Assessment Billing CRYSTAL-7 Assessment Tool: CRYSTAL-7 Assessment 19078 Physical exam (Primary Care) Vital Signs: Last Vital Signs Pulse 114 H 10/26/24 13:45 Resp 14 10/26/24 13:45 BP 116/84 10/26/24 13:45 Pulse Ox 98 10/26/24 13:45 Oxygen Delivery Method Room Air 10/26/24 13:45 BMI result Body Mass Index 18.0 Tobacco/Smoking Status: Tobacco use Status Tobacco use date assessed 10/26/24 10/26/24 13:47 Patient Tobacco Use Status Current everyday Tobacco 10/26/24 13:47 e-Cigarette/Vaping Use Never Used 10/26/24 13:47 Depression Screening Interpretation: Positive Depression Screening Follow-up: Existing condition and In treatment Thrive Assessment: Date of Thrive Assessment Date Thrive assessed 10/26/24 10/26/24 13:47 Currently or been in a relationship where the following occur: I choose not to answer Const Orientation/consciousness: patient oriented x3 HENMT Ears: hearing grossly normal bilaterally Neck Thyroid: Thyroid normal Lymphatic: no lymphadenopathy noted Resp Auscultation: clear to auscultation bilaterally Cardio Rate: regular rate Rhythm: regular rhythm Heart sounds: S1 normal heart sound present and S2 normal heart sound present Skin General skin exam: no rashes or lesions noted Neuro General: patient oriented x3, gait normal and no focal motor deficits Coding Level of Care Code Est Pt Level 4 (44541) Complex EM visit Add On G2211 Diagnoses Mild episode of recurrent major depressive disorder F33.0 Active/Remission status: currently active Major depression episode severity: mild Major depression recurrence: recurrent Rectal cancer C20 Generalized anxiety disorder F41.1 Additional Codes CRYSTAL-7 Assessment Billing - CRYSTAL-7 Assessment Tool: CRYSTAL-7 Assessment 84935 ([id number]) PHQ-9 - 24148 - PHQ-9 Billing: Yes ([id number]) Assessment & Plan Assessment & Plan (1) Major depression: Code(s): F32.9 - Major depressive disorder, single episode, unspecified Category: Medical Qualifiers: Active/Remission status: currently active Major depression episode severity: mild Major depression recurrence: recurrent Qualified Code(s): F33.0 - Major depressive disorder, recurrent, mild Plan: Referral to the [facility] Advised her to follow with a therapist Currently stable. Continue duloxetine 60 mg twice a day (2) Rectal cancer: Code(s): C20 - Malignant neoplasm of rectum Category: Medical Plan: Requested notes from [facility] (3) Generalized anxiety disorder: Code(s): F41.1 - Generalized anxiety disorder Category: Medical Plan: I did recently refilled lorazepam for 30 tablets. Advised with her that I will not fill this monthly and that this is to be taken very sparingly and only for panic attacks and imaging. I have strongly encouraged her to follow up again with behavioral health Plan Advised patient to complete labs Orders: Orders Complete Blood Count Auto Diff 10/26/24 C20 - Malignant neoplasm of rectum, F33.0 - Major depressive disorder, recurrent, mild, F41.1 - Generalized anxiety disorder Lipid Panel 10/26/24 C20 - Malignant neoplasm of rectum, F33.0 - Major depres sive disorder, recurrent, mild, F41.1 - Generalized anxiety disorder Comprehensive [place]. Panel Fast 10/26/24 C20 - Malignant neoplasm of rectum, F33.0 - Major depressive disorder, recurrent, mild, F41.1 - Generalized anxiety disorder TSH reflex Free T4 10/26/24 C20 - Malignant neoplasm of rectum, F33.0 - Major depressive disorder, recurrent, mild, F41.1 - Generalized anxiety disorder Referrals Behavioral Health Referral C20 - Malignant neoplasm of rectum, F33.0 - Major depressive disorder, recurrent, mild, F41.1 - Generalized anxiety disorder Addiction Medicine Referral F10.10 - Alcohol abuse, uncomplicated, F33.0 - Major depressive disorder, recurrent, mild, F41.1 - Generalized anxiety disorder Patient Instructions: Addiction medicine [phone]?Phone
[2024-10-26 13:45] VITALS: BP 116/84; PULSE 114; RESP 14; O2SAT 98; BMI 18.0
== END 2024-10-26 14:18 | disposition home or self-care (01) ==
LOC: HO.HMCFM 13:35
PROVIDERS: PCP Physician Assistant; Visit Provider Physician Assistant
DX: F33.0 Major depressive disorder, recurrent, mild (principal); C20 Malignant neoplasm of rectum; F41.1 Generalized anxiety disorder

== ENCOUNTER → 2024-10-26 13:34 | Outpatient (BNVA) | payer OTHER, SELFPAY | PROVIDERS: PCP Physician Assistant; Visit Provider Physician Assistant | DX: I10 Essential (primary) hypertension (principal); F33.0 Major depressive disorder, recurrent, mild; F41.1 Generalized anxiety disorder; C20 Malignant neoplasm of rectum; F10.10 Alcohol abuse, uncomplicated; Z79.899 Other long term (current) drug therapy | CPT/HCPCS: 96127; 99212 ==

== ENCOUNTER 2025-01-29 10:00 | Outpatient (REF) | payer OTHER, SELFPAY ==
[2025-01-29 14:56] LABS: Resp Syncy Virus RNA Qual PCR NEGATIVE (Negative); SARS COV2 PCR INHOUSE NEGATIVE (Negative)
== END 2025-01-29 10:01 | disposition home or self-care (01) ==
LOC: HO.LNP 10:00
PROVIDERS: PCP Physician Assistant; Visit Provider Family Medicine
DX: H61.22 Impacted cerumen, left ear (principal); J22 Unspecified acute lower respiratory infection; R05.9 Cough, unspecified; F17.210 Nicotine dependence, cigarettes, uncomplicated
CPT/HCPCS: 87637

== ENCOUNTER 2025-01-29 10:00 | Outpatient (AMB) | payer OTHER, SELFPAY ==
--- NOTE | 2025-01-29 10:01 | AM.OFFWIN_ITS ---
Intake Vital Signs 01/29/25 10:02 Height 5 ft 5.87 in Weight 116 lb BMI 18.8 BP 139/87 Blood Pressure Location Rt brachial Position Sitting Pulse 93 Pulse Source Pulse Oximeter Temp 98.4 F Temp Source Oral Pulse Oximetry (%) 98 Oxygen Delivery Method Room Air Intake Visit Reasons: EP -? URI Intake Note: EP complains of headache, productive cough (yellow mucus), nasal congestion and runny nose started 4 days ago. Patient Tobacco Use Status: Current everyday Tobacco user Allergies No Known Allergies Allergy (Verified 01/29/25 10:14) Medication List - Last Reconciled 01/29/25 by Filomena Allred MD duloxetine 60 mg PO BID lorazepam 0.5 mg PO TID PRN 30 days nicotine 1 patch topical DAILY pregabalin 50 mg PO BID Do you need a note to return to daycare/school/sports/work: No HPI HPI Comments History of Present Illness Details History of Present Illness The patient is a 59-year-old female with a PMH of rectal cancer s/p colosctomy, rectovaginal fistula, hypertension, anxiety, depression, presenting with a cough, headaches, and rhinorrhea. - The patient reports a 4-5 day history of a productive cough with yellow sputum - The cough is severe enough to wake her at night - She states coughing also causes pain a t her ostomy site from increased pressure - She also reports a severe sinus headac he and significant nasal drainage. - She denies any fever, shortness of bayron ath, nausea, vomiting, diarrhea, sore throat, or ear pain. - She has not taken any medications for these symptoms.. Impacted Cerumen: - The patient reports difficulty hearing out of her left ear - Denies any pain of the ear Review of Systems Constitutional: Negative for fevers, chills HENT: Reports rhinorrhea, congestion, and sinus headaches. Negative forsore throat, ear pain, ear discharge. Respiratory: Reports cough. Denies shortness of breath or wheezing Cardiac: Negative for chest pain Gastrointestinal: Negative for abdominal pain, nausea, vomiting, diarrhea, Neurological: Positive for headaches Physical Exam General Appearance: Normal appearance, well developed. No acute distress. ENT: Left ear canal impacted with cerumen. Right External ear and ear canal normal. TM without erythema or bulging. Nasal discharge present with post nasal drainage. Oropharynx clear without erythema or exudate. Head: Normocephalic, atraumatic. Pulmonary: No respiratory distress. Clear to auscultation bilaterally. No crackles heard. Speaking in full sentences Cardiac: Regular rate and rhythm. No murmurs. Musculoskeletal: Moving all extremities spontaneously and against gravity. Mental Status: Alert and Oriented x 3. Psychiatric: Normal mood. Normal affect. [facility] Medical History Underweight Prediabetes Major depression Elevated liver enzymes Benign hypertension Alcohol abuse Surgical History (Updated 09/16/23 @ 10:29 by Lara Donaldson CMA) Hx of fusion of cervical spine Hx of tonsillectomy Social History (Updated 09/16/23 @ 10:36 by Lara Donaldson CMA) Housing: House Patient Tobacco Use Status: Current everyday Tobacco user Cigarettes Per Day: 20 Years Smoked: 30 e-Cigarette/Vaping Use: Never Used Second Hand Smoke Exposure: No Substance Use Type: Marijuana service: No Current occupational status: unemployed Cognitive needs: No Hearing needs: No Vision needs: No Physical Exam Vital Signs: Last Vital Signs Temp 98.4 F 01/29/25 10:02 Pulse 93 01/29/25 10:02 BP 139/87 01/29/25 10:02 Pulse Ox 98 01/29/25 10:02 Oxygen Delivery Method Room Air 01/29/25 10:02 BMI result Body Mass Index 18.8 Office Procedures Cerumen Removal Details: Attempted left ear irrigation with hydrogen peroxide of the left ear without significant improvement. Impacted ear wax still noted From which ear canal was the cerumen removed: left Removal: irrigation 37336-[id number] Irrigation/Lavage Assessment & Plan Assessment & Plan (1) Acute respiratory infection: Code(s): J22 - Unspecified acute lower respiratory infection (2) Left ear impacted cerumen: Code(s): H61.22 - Impacted cerumen, left ear Plan - Patient presents with rhinorrhea, cough, congestion, and headaches for about 4-5 days - Low suspicion for pneumonia given clear lungs to auscultation, afebrile, and patient saturating well--no indication for CXR. - Symptoms appear more consistent with viral URI - A viral panel for COVID-19, influenza, and RSV was performed. - Benzonatate prescribed to help with cough. Advised to swallow immediately and discussed potential side effect of drowsiness. - Discussed rest, increase fluid intake, and use an OTC antihistamine (e.g., Zyrtec, Reshma) to reduce drainage. - Mucinex was also offered as an option to help reduce mucus. - Due to patients immunocompromised status, advised to monitor closely for worsening symptoms such as fevers, shortness of breath, increased cough, or chest pain - The patient has difficulty hearing in the left ear due to impacted cerumen. - An initial attempt at irrigation with water and hydrogen peroxide was unsuccessful due to the hardness of the wax. - Recommended use of OTC debrox drop daily and return for irrigation if no improvement. - Advised to monitor for any ear pain and return if this occurs Patient was informed and verbally consented to the use of an ambient scribe for clinic note documentation during the visit. Orders: Orders SARS-CoV2/FLU/RSV Today R05.9 - Cough, unspecified AMB Cerumen Removal Today H61.22 - Impacted cerumen, left ear Medications: New benzonatate 100 mg PO TID PRN 20 caps 0RF cough Coding Level of Care Code Est Pt Level 3 (76041) Diagnoses Acute respiratory infection J22 Left ear impacted cerumen H61.22 CPT Codes Office Procedure - CPT: 16108-Zbr Irrigation/Lavage ([id number])
[2025-01-29 10:02] VITALS: BP 139/87; PULSE 93; TEMP 36.9; O2SAT 98; BMI 18.8
--- OUTSIDE RECORDS SUMMARY | 2025-01-29 11:33 | XMS_ITS | Encounter Summary ---
Author Organization [facility] Address [address] [place] [address] Phone Care Team Providers Care Sql Server Dba Name Role Phone Etelvina Barney PA-C Primary Care Provider + Encounter Details Date Type Department Care Team (Late st Contact Info) Description 02/02/2024 Documentation Only [facility] [place], [address] [place] [address] Yecenia Meeks [address] [place] [address] Social History Tobacco Use Types [...] on filedocumented in this encounter Care Teams Sql Server Dba Relationship Specialty Start Date End Date Etelvina Barney PA-C [address] [place] [phone] PCP - General Physician Community Development Director 12/21/23 documented as of this encounter
--- OUTSIDE RECORDS SUMMARY | 2025-01-29 11:33 | XMS_ITS | Encounter Summary ---
Author Organization [facility] Address [address] [place] [address] Phone Care Team Providers Care Cellar Packer Name Role Phone Etelvina Barney PA-C Primary Care Provider + Encounter Details Date Type Department Care Team (Late st Contact Info) Description 02/02/2024 Documentation Only [facility] [place], [address] [place] [address] Yecenia Meeks [address] [place] [address] Social History Tobacco Use Types [...] on filedocumented in this encounter Care Teams Cellar Packer Relationship Specialty Start Date End Date Etelvina Barney PA-C [address] [place] [phone] PCP - General Physician Medical Case Worker 12/21/23 documented as of this encounter
--- OUTSIDE RECORDS SUMMARY | 2025-01-29 11:33 | XMS_ITS | Encounter Summary ---
Author Organization [facility] Address [address] [place] [address] Phone Care Team Providers Care Vp Transportation Name Role Phone Etelvina Barney PA-C Primary Care Provider + Encounter Details Date Type Department Care Team (Late st Contact Info) Description 02/02/2024 Documentation Only [facility] [place], [address] [place] [address] Yecenia Meeks [address] [place] [address] Social History Tobacco Use Types [...] on filedocumented in this encounter Care Teams Vp Transportation Relationship Specialty Start Date End Date Etelvina Barney PA-C [address] [place] [phone] PCP - General Physician Predatory Game Hunter 12/21/23 documented as of this encounter
--- OUTSIDE RECORDS SUMMARY | 2025-01-29 11:33 | XMS_ITS | Encounter Summary ---
Author Organization [facility] Address [address] [place] [address] Phone Care Team Providers Care Refrigeration Specialist Name Role Phone Etelvina Barney PA-C Primary Care Provider + Encounter Details Date Type Department Care Team (Late st Contact Info) Description 02/02/2024 Documentation Only [facility] [place], [address] [place] [address] Yecenia Meeks [address] [place] [address] Social History Tobacco Use Types [...] on filedocumented in this encounter Care Teams Refrigeration Specialist Relationship Specialty Start Date End Date Etelvina Barney PA-C [address] [place] [phone] PCP - General Physician Mri Tech 12/21/23 documented as of this encounter
--- OUTSIDE RECORDS SUMMARY | 2025-01-29 11:33 | XMS_ITS | Encounter Summary ---
Author Organization [facility] Address [address] [place] [address] Phone Care Team Providers Care Ui Architect Name Role Phone Etelivna Barney PA-C Primary Care Provider + Encounter Details Date Type Department Care Team (Late st Contact Info) Description 02/02/2024 Documentation Only [facility] [place], [address] [place] [address] Yecenia Meeks [address] [place] [address] Social History Tobacco Use [...] on filedocumented in this encounter Care Teams Ui Architect Relationship Specialty Start Date End Date Etelvina Barney PA-C [address] [place] [address] PCP - General Physician Deputy Clerk 12/21/23 documented as of this encounter
--- OUTSIDE RECORDS SUMMARY | 2025-01-29 11:33 | XMS_ITS | Encounter Summary ---
Author Organization [facility] Address [address] [place] [address] Phone Care Team Providers Care Stave Cutter Name Role Phone Etelvina Barney PA-C Primary Care Provider + Encounter Details Date Type Department Care Team (Late st Contact Info) Description 02/02/2024 Documentation Only [facility] [place], [address] [place] [address] Yecenia Meeks [address] [place] [address] Social History Tobacco Use Types [...] on filedocumented in this encounter Care Teams Stave Cutter Relationship Specialty Start Date End Date Etelvina Barney PA-C [address] [place] [phone] PCP - General Physician Production Generalist 12/21/23 documented as of this encounter
--- OUTSIDE RECORDS SUMMARY | 2025-01-29 11:33 | XMS_ITS | Clinical Summary ---
Author Organization [facility] Address [address] [place] [address] Care Team Providers Care Cover Seamer Name Role Phone Etelvina Barney PA-C Primary [...] in appetite Cellulitis Benign essential hypertension Immunizations Immunization Administration Dates Next Due Hepatitis B 01/26/2011 [...] Last Done Comments Breast Cancer Screening 1965 Hepatitis B Vaccine (1 of 3 - 19+ 3-dose series) 05/0501/26/2011 Pneumococcal Vaccine: 50+ Years (1 of 2 - PCV) 985 Colorectal Cancer Screening: Annual FOBT 2014 Colorectal Cancer Screening: Colonoscopy 2014 Colorectal Cancer Screening: Sigmoidoscopy 2014 Influenza Vaccine (#1) [address] [place] [address] Medicaid Care Teams Cover Seamer Relationship Specialty Start Date End Date Etelvina Barney PA-C [address] [place] [address] PCP - General Physician Open Winder 12/21/23
--- OUTSIDE RECORDS SUMMARY | 2025-01-29 11:33 | XMS_ITS | Encounter Summary ---
Author Organization [facility] Address [address] [place] [address] Phone Care Team Providers Care Fire Marshal Refinery Name Role Phone Etelvina Barney PA-C Primary Care Provider + Encounter Details Date Type Department Care Team (Late st Contact Info) Description 02/02/2024 Documentation Only [facility] [place], [address] [place] [address] Yecenia Meeks [address] [place] [address] Social History Tobacco Use Types [...] on filedocumented in this encounter Care Teams Fire Marshal Refinery Relationship Specialty Start Date End Date Etelvina Barney PA-C [address] [place] [phone] PCP - General Physician Transport Medic 12/21/23 documented as of this encounter
--- OUTSIDE RECORDS SUMMARY | 2025-01-29 11:33 | XMS_ITS | Encounter Summary ---
Author Organization [facility] Address [address] [place] [address] Phone Care Team Providers Care Social Worker School Name Role Phone Etelvina Barney PA-C Primary Care Provider + Encounter Details Date Type Department Care Team (Late st Contact Info) Description 02/02/2024 Documentation Only [facility] [place], [address] [place] [address] Yecenia Meeks [address] [place] [address] Social History Tobacco Use Types [...] on filedocumented in this encounter Care Teams Social Worker School Relationship Specialty Start Date End Date Etelvina Barney PA-C [address] [place] [address] PCP - General Physician Fermentation Operator 12/21/23 documented as of this encounter
--- OUTSIDE RECORDS SUMMARY | 2025-01-29 11:33 | XMS_ITS | Clinical Summary ---
Author Organization [facility] Address [address] [facility] [place] [address] Phone Care Team Providers Care Cafe Associate Name Role Phone Etelvina Barney Primary Care Provider +1- [phone] Ed Lanier MD Unavailable Christos Power MD, MPH Unavailable +1 [phone] Allergies No known active allergies Medications DULoxetine (CYMBALTA) 60 MG capsule Take 60 mg by mouth 2 (two) times a day. Active pregabalin (LYRICA) 75 MG capsule Take 75 mg by mouth 2 (two) times a day. Active LORazepam (ATIVAN) 0.5 MG tablet Take 0.5 mg by mouth 3 (three) times a day. Active diazePAM (VALIUM) 5 MG tablet Take 5 mg by mouth every 8 (eight) hours as needed for anxiety. Active Encounters Date Type Department Care Team Description 01/09/2025 10:15 AM EDT Office Visit [facility] Plastic Surgery [address] [facility] [address] [place] [address] Fransisco Ortiz MD, PhD Rectal adenocarcinoma (Primary Dx) 01/04/2025 1:30 PM EDT Office Visit [facility], [facility] [place] [facility], [facility] [place] [facility] [place] [address] [address] Omaira Davis MD Rectal cancer (Primary Dx) 01/03/2025 1:40 PM EDT - 01/03/2025 11:59 PM EDT Hospital Encounter [facility] Phleb Main [address] [place] [address] Christos Power MD, MPH Discharge Disposition: Home or Self Care 01/03/2025 11:30 AM EDT Office Visit [facility] General & GI Surgery [address] [address] Christos Power MD, MPH Malignant neoplasm of rectum (Primary Dx) 12/22/2024 Telephone [facility] General & GI Surgery [address] [place] [address] Madeline Connor Appointment 12/22/2024 Telephone [facility] General & GI Surgery [address] [place] [address] Madeline Connor Appointment 12/19/2024 Telephone [facility] General & GI Surgery [address] [place] [address] Madeline Connor Appointment 12/15/2024 Telephone [facility] General & GI Surgery [address] [place] [address] Madeline Connor Appointment 12/14/2024 2:17 PM EDT - 12/14/2024 11:59 PM EDT Hospital Encounter [facility], [facility] [address] [place] [address] Discharge Disposition: Home or Self Care 12/14/2024 Orders Only [facility], [facility] [address] [facility], 10th [place] [address] Christos Power MD, MPH Rectal cancer (Primary Dx) 12/13/2024 Ancillary Orders DF IMG OUTSIDE IMG [address] [place] [address] Christos Power MD, MPH 12/13/2024 Ancillary Orders DF IMG OUTSIDE IMG [address] [place] [address] Christos Power MD, MPH 12/13/2024 Ancillary Orders DF IMG OUTSIDE IMG [address] [place] [address] Jannet, Christos Bradshaw MD, MPH 12/13/2024 Ancillary Orders [facility] IMG OUTSIDE IMG [address] [place] [address] Jannet, Christos Bradshaw MD, MPH 12/13/2024 Ancillary Orders [facility] IMG OUTSIDE IMG [address] [place] [address] Jannet, Christos Bradshaw MD, MPH 12/13/2024 Ancillary Orders DF IMG OUTSIDE IMG [address] [place] [address] Jannet, Christos Bradshaw MD, MPH 12/13/2024 Ancillary Orders [facility] IMG OUTSIDE IMG [address] [place] [address] Jannet, Christos Bradshaw MD, MPH 12/13/2024 Ancillary Orders [facility] IMG OUTSIDE IMG [address] [place] [address] Christos Power MD, MPH 12/13/2024 Ancillary Orders DF IMG OUTSIDE IMG [address] [place] [address] Christos Power MD, MPH 12/13/2024 Ancillary Orders [facility] IMG OUTSIDE IMG [address] [place] [address] Christos Power MD, MPH 12/13/2024 Ancillary Orders DF IMG OUTSIDE IMG [address] [place] [address] Christos Power MD, MPH 12/13/2024 Ancillary Orders [facility] IMG OUTSIDE IMG [address] [place] [address] Christos Power MD, MPH 12/13/2024 Ancillary Orders [facility] IMG OUTSIDE IMG [address] [place] [address] Christos Power MD, MPH 12/13/2024 Ancillary Orders [facility] IMG OUTSIDE IMG [address] [place] [address] Christos Power MD, MPH 12/13/2024 Ancillary Orders [facility] IMG OUTSIDE IMG [address] [place] [address] Christos Power MD, MPH 12/13/2024 Ancillary Orders [facility] IMG OUTSIDE IMG [address] [place] [address] Christos Power MD, MPH 12/13/2024 Ancillary Orders [facility] IMG OUTSIDE IMG [address] [place] [address] Christos Power MD, MPH 12/13/2024 Ancillary Orders DF IMG OUTSIDE IMG [address] [place] [address] Christos Power MD, MPH 12/08/2024 Orders Only [facility], [facility] [address], 10th [place] [address] Christos Power MD, MPH Rectal cancer (Primary Dx) 11/16/2024 Ancillary Procedure DF IMG OUTSIDE IMG [address] [place] [address] Christos Power MD, MPH from Last 3 Months Family History Medical History Relation Comments Skin cancer Maternal Uncle Hypertension Mother Skin cancer Mother Relation Status Comments Maternal Uncle Alive Mother Alive Social History Tobacco Use Types Packs/Day Years Used Date Smoking Tobacco: Every Day Cigarettes 1 40.9 Started: 1984 Passive Smoke Exposure: Never Smokeless Tobacco: Never Tobacco Cessation:Ready to Q uit: Not Asked; Counseling Given: Not Answered Comments:STARTED AT 16. Education Answer Date Recorded Are you interested in more education? Not on ann e 12/08/2024 Are you concerned about learning? Not on file 12/08/2024 No 12/08/2024 No 12/08/2024 Digital Access Answer Date Recorded No 12/08/2024 No 12/08/2024 Reliable internet access at home? Not on file 12/08/2024 Device with a working camera? Not on file Comments Unknown Sex and Gender Information Value Date Recorded Sex Assigned at Female 12/08/2024 3:35 PM EDT Legal Sex Female 10:33 PM EDT Gender Identity Female 12/08/2024 3:35 PM EDT Sexual Orientation Choose not to disclose 2024 3:35 PM EDT Last Filed Vital Signs Vital Sign Reading Time Taken Comments Blood Pressure 135/83 01/09/2025 10:57 AM EDT Pulse 110 01/09/2025 10:57 AM EDT Temperature 36.1 C (96.9 F) 01/04/2025 2:17 PM EDT Respiratory Rate 16 01/04/2025 2:17 PM EDT Oxygen Saturation 98% 01/04/2025 2:17 PM EDT Inhaled Oxygen Concentration - - Weight 52.6 kg (116 lb) 01/09/2025 10:57 AM EDT Height 167.6 cm (5' 6 ) 01/09/2025 10:57 AM EDT Body Mass Index 18.72 01/09/2025 10:57 AM EDT Plan of Treatment Upcoming Encounters Date Type Department Care Team (Late st Contact Info) Description 01/03/2025 Procedure Pass [facility] Radiology Department [address] [place] [address] 01/03/2025 Procedure Pass [facility] [address] [place] [address] 01/03/2025 Procedure Pass [facility] [address] [place] [address] 01/30/2025 11:30 AM EST Ancillary Procedure [facility] Radiology Department [address] [place] [address] Christos Power MD, MPH [address] [address] [email or web address] 02/10/2025 2:00 PM EST Appointment [facility] [address] [place] [address] Christos Power MD, MPH [address] [place] [address] [email or web address] 02/19/2025 4:45 PM EST Telemedicine [facility] General & GI Surgery [address] [facility] [place] [address] Christos Power MD, MPH [address] [facility] [place] [address] [email or web address] Health Maintenance Due Date Last Done Comments Adult Td,Tdap Booster 1965 LIPID PANEL 1965 HEPATITIS C SCREENING 1983 HIV ONE-TIME SCREENING (18-6 5 YEARS) 1983 PNEUMOCOCCAL VACCINES (50+ y ears) (1 of 2 - PCV) 1984 ZOSTER VACCINES (1 of 2) 1984 PAP SMEAR 1986 MAMMOGRAM 2005 COLOGUARD 2010 COLONOSCOPY 2010 COLORECTAL CANCER SCREENING 2010 FIT TEST 2010 FOBT 2010 SIGMOIDOSCOPY 2010 VIRTUAL COLONOSCOPY 2010 LUNG CANCER SCREENING (LDCT Only) 2015 INFLUENZA VACCINE (#1) 2024 COVID-19 VACCINE ( - 2024-2 6 season) 2024 DEPRESSION SCREENING 01/03/2026 01/03/2025 SMOKING Hx and SMOKELESS TOB ACCO SCREENING 01/09/2026 01/09/2025 RSV VACCINE (1 - 1-dose 75+ series) 2040 HEPATITIS A VACCINES Aged Out No long er eligible based on patient's age to complete this topic HIB VACCINES Aged Out No longer eligi ble based on patient's age to complete this topic IPV VACCINES Aged Out No longer eligi ble based on patient's age to complete this topic MENINGOCOCCAL VACCINES (ACWY) Aged Out No longer eligible based on patient's age to complete this topic MENINGOCOCCAL VACCINES (B) Aged Out N o longer eligible based on patient's age to complete this topic Medical Devices Not on file Procedures Procedure Name Priority Date/Time Associated Diagnosis Comments CBC AND DIFFERENTIAL Routine 01/03/2025 1:49 PM EDT Malignant neoplasm of rectum PREALBUMIN Routine 01/03/2025 1:49 PM EDT Malignant neoplasm of rectum PT-INR Routine 01/03/2025 1:49 PM EDT Malignant neoplasm of rectum COMPREHENSIVE METABOLIC PANEL (CMP) Routine 01/03/2025 1:49 PM EDT Malignant neoplasm of rectum CARCINOEMBRYONIC ANTIGEN (CEA) Routine 01/03/2025 1:49 PM EDT Malignant neoplasm of rectum NM PET WHOLE BODY OUTSIDE (NO INTERPRETATION) Routine 11/16/2024 12:00 AM EDT OUTSIDE IMAGING 11/16/2024 OUTSIDE IMAGING 11/01/2024 from Last 3 Months Results * (ABNORMAL) Comprehensive metabolic panel (01/03/2025 1:49 PM EDT) SODIUM 140 136 - 145 mmol/L [facility] POTASSIUM 4.3 3.4 - 5.1 mmol/L [facility] CHLORIDE 100 98 - 107 mmol/L [facility] CO2 28 22 - 31 mmol/L [facility] BUN 7 6 - 23 mg/dL [facility] CREATININE 0.75 0.50 - 1.20 mg/dL [facility] GLUCOSE 98 70 - 100 mg/dL [facility] ALBUMIN 4.0 3.5 - 5.2 g/dL [facility] TOTAL PROTEIN 7.5 6.4 - 8.3 g/dL [facility] CALCIUM 9.6 8.8 - 10.7 mg/dL [facility] ALKALINE PHOSPHATASE 148(H) 35 - 130 U/L [facility] TOTAL BILIRUBIN 0.2 0.0 - 1.0 mg/dL [facility] AST 19 10 - 50 U/L [facility] ALT 14 10 - 50 U/L [facility] GLOBULIN 3.5 2.2 - 4.2 g/dL [facility] EGFR 92 >59 mL/min/1. 73m2 [facility] Comment:Estimated glomerular filtration rate calculated using the CKD-EPI refit equation. ANION GAP 12 7 - 17 mmol/L [facility] 01/03/2025 1:49 PM EDT 01/03/2025 2:01 PM EDT Christos Power MD, MPH LAB BLOOD BKR ORDER PAWAN Final Result Performing Organization Address City/[facility] Co de Phone Number [facility] [address] [place] [address] * PT-INR (01/03/2025 1:49 PM EDT) PT 11.4 10.0 - 13.0 sec [facility] INR 1.0 0.9 - 1.1 [facility] 01/03/2025 1:49 PM EDT 01/03/2025 2:01 PM EDT Christos Power MD, MPH LAB BLOOD BKR ORDER PAWAN Final Result Performing Organization Address [facility] de Phone Number [address] [address] * (ABNORMAL) CBC and differential (01/03/2025 1:49 PM EDT) WBC 9.36 4.00 - 11.00 K/uL [facility] RBC 4.87 4.00 - 5.20 M/uL [facility] HGB 14.7 12.0 - 16.0 g/dL [facility] HCT 44.9 36.0 - 46.0 % [facility] PLT 412 150 - 450 K/uL [facility] MCV 92.2 80.0 - 100.0 fL [facility] MCH 30.2 27.0 - 31.0 pg [facility] MCHC 32.7 32.0 - 36.0 g/dL [facility] RDW 14.2 11.5 - 14.5 % [facility] MPV 9.6 8.4 - 12.0 fL [facility] NRBC 0.00 0.00 /100 W[facility]s [facility] ABSOLUTE NRBC 0.00 0.00 K/uL [facility] DIFF METHOD Auto [facility] NEUTS 78.9(H) 48.0 - 76.0 % [facility] LYMPHS 9.5(L) 18.0 - 41.0 % [facility] MONOS 9.2 4.0 - 11.0 % [facility] EOS 0.9 0.0 - 5.0 % [facility] BASOS 0.9 0.0 - 1.5 % [facility] % IMMATURE GRANS 0.6 0.0 - 0.9 % [facility] ABSOLUTE NEUTS 7.39 1.92 - 7.60 K/uL [facility] Comment:1.21-5.39 cells/KL i s the reference range for individuals with the Enriquez null phenotype ABSOLUTE LYMPHS 0.89 0.72 - 4.10 K/uL [facility] ABSOLUTE MONOS 0.86 0.16 - 1.10 K/uL [facility] ABSOLUTE EOS 0.08 0.00 - 0.50 K/uL [facility] ABSOLUTE BASOS 0.08 0.00 - 0.15 K/uL [facility] ABS IMMATURE GRANS 0.06 0.00 - 0.09 K/uL [facility] ABSOLUTE NEUTROPHIL COUNT 7.39 1.92 - 7.60 K/uL [facility] Comment: Automated cell count. Manual ANC may differ if performed. 1.21-5.39 cells/KL is the reference range for individuals with the Enriquez null phenotype Blood 01/03/2025 1:49 PM EDT 01/03/2025 2:01 PM EDT us Christos Power MD, MPH LAB BLOOD BKR ORDER PAWAN Final Result [facility] [address] [place] [address] * Prealbumin (01/03/2025 1:49 PM EDT) PREALBUMIN 22 20 - 40 mg/dL [facility] 01/03/2025 1:49 PM EDT 01/03/2025 2:01 PM EDT Christos Power MD, MPH LAB BLOOD BKR ORDER PAWAN Final Result Performing Organization Address [facility] Co de Phone Number [facility] [address] [place] [address] * (ABNORMAL) Carcinoembryonic antigen (CEA) (01/03/2025 1:49 PM EDT) CEA 11.6(H) 0 - 3.7 ng/mL [facility] Comment: CEA REFERENCE RANGE: NON-SMOKERS: < 3.8 ng/mL SMOKERS: < 5.0 ng/mL 01/03/2025 1:49 PM EDT 01/03/2025 2:07 PM EDT Christos Power MD, MPH LAB BLOOD BKR ORDER PAWAN Final Result Performing Organization Address [facility] de Phone Number [facility] [address] [place] [phone] * Outside Imaging Report Only (11/16/2024) us Scanning Interface Provider IMG XR CHEST Lakesha l Result * NM PET Whole Body Outside (No Interpretation) (11/16/2024 12:00 AM EDT) Other Narrative [facility] - 12/13/2024 9:09 AM EDT This study is for PACS storage only and not for interpretation. us Christos Power MD, MPH IMG OUTSIDE IMAGING W/OUT INTERPRETATION Final Result Performing Organization Address [facility] Co de Phone Number [facility] * Outside Imaging Report Only (11/01/2024) us Scanning Interface Provider IMG XR CHEST Lakesha l Result from Last 3 Months Insurance [facility] Care Teams Cafe Associate Relationship Specialty Start Date End Date Etelvina Barney PA [address] [place] [phone] PCP - General Physician Dietary Aid 12/08/24 Ed Lanier MD [facility] [place] [address] [email or web address] Physician 12/08/24 Christos Power MD, MPH [address] [place] [address] [email or web address] 12/08/24 Additional Source Comments The information contained in this document represents components of the legal health record. It is not the complete legal health record.[facility]
--- OUTSIDE RECORDS SUMMARY | 2025-01-29 11:33 | XMS_ITS | Encounter Summary ---
Author Organization [facility] Address [address] [place] [address] Phone Care Team Providers Care Auto Battery Builder Name Role Phone Etelvina Barney PA-C Primary Care Provider + Encounter Details Date Type Department Care Team (Late st Contact Info) Description 02/02/2024 Documentation Only [facility] [place], [address] [place] [address] Yecenia Meeks [address] [place] [address] Social History Tobacco Use Types [...] on filedocumented in this encounter Care Teams Auto Battery Builder Relationship Specialty Start Date End Date Etelvina Barney PA-C [address] [place] [phone] PCP - General Physician Burner Operator 12/21/23 documented as of this encounter
--- OUTSIDE RECORDS SUMMARY | 2025-01-29 11:33 | XMS_ITS | Encounter Summary ---
Author Organization [facility] Address [address] [place] [address] Phone Care Team Providers Care Power Barker Operator Name Role Phone Etelvina Barney PA-C Primary Care Provider + Encounter Details Date Type Department Care Team (Late st Contact Info) Description 02/02/2024 Documentation Only [facility] [place], [address] [place] [address] Yecenia Meeks [address] [place] [address] Social History Tobacco Use Types [...] on filedocumented in this encounter Care Teams Power Barker Operator Relationship Specialty Start Date End Date Etelvina Barney PA-C [address] [place] [phone] PCP - General Physician Painting Worker 12/21/23 documented as of this encounter
--- OUTSIDE RECORDS SUMMARY | 2025-01-29 11:33 | XMS_ITS | Encounter Summary ---
Author Organization [facility] Address [address] [place] [address] Phone Care Team Providers Care Aircraft Steel Fabricator Name Role Phone Etelvina Barney PA-C Primary Care Provider + Encounter Details Date Type Department Care Team (Late st Contact Info) Description 02/02/2024 Documentation Only [facility] [place], [address] [place] [address] Yecenia Meeks [address] [place] [address] Social History Tobacco Use Types [...] on filedocumented in this encounter Care Teams Aircraft Steel Fabricator Relationship Specialty Start Date End Date Etelvina Barney PA-C [address] [place] [phone] PCP - General Physician Vp Cardiovascular Service Line 12/21/23 documented as of this encounter
--- OUTSIDE RECORDS SUMMARY | 2025-01-29 11:33 | XMS_ITS | Encounter Summary ---
Author Organization [facility] Address [address] [place] [address] Phone Care Team Providers Care Director Industrial [employer] Name Role Phone Etelvina Barney PA-C Primary Care Provider + Encounter Details Date Type Department Care Team (Late st Contact Info) Description 02/02/2024 Documentation Only [facility] [place], [address] [place] [address] Yecenia Meeks [address] [place] [address] Social History Tobacco Use Types [...] filedocumented in this encounter Care Teams Director Industrial Museum Relationship Specialty Start Date End Date Etelvina Barney PA-C [address] [place] [phone] PCP - General Physician Engineer Technical Staff 12/21/23 documented as of this encounter
--- OUTSIDE RECORDS SUMMARY | 2025-01-29 11:33 | XMS_ITS | Encounter Summary ---
Author Organization [facility] Address [address] [place] [address] Phone Care Team Providers Care Carbide Tool Die Maker Name Role Phone Etelvina Barney PA-C Primary Care Provider + Encounter Details Date Type Department Care Team (Late st Contact Info) Description 02/02/2024 Documentation Only [facility] [place], [address] [place] [address] Yecenia Meeks [address] [place] [address] Social History Tobacco Use Types [...] on filedocumented in this encounter Care Teams Carbide Tool Die Maker Relationship Specialty Start Date End Date Etelvina Barney PA-C [address] [place] [phone] PCP - General Physician Leadership Development Manager 12/21/23 documented as of this encounter
--- OUTSIDE RECORDS SUMMARY | 2025-01-29 11:33 | XMS_ITS | Encounter Summary ---
Author Organization [facility] Address [address] [place] [address] Phone Care Team Providers Care Account Assistant Name Role Phone Etelvina Barney PA-C Primary Care Provider + Encounter Details Date Type Department Care Team (Late st Contact Info) Description 02/02/2024 Documentation Only [facility] [place], [address] [place] [address] Yecenia Meeks [address] [place] [address] Social History Tobacco Use Types [...] on filedocumented in this encounter Care Teams Account Assistant Relationship Specialty Start Date End Date Etelvina Barney PA-C [address] [place] [phone] PCP - General Physician Pilot Control Operator Helper 12/21/23 documented as of this encounter
== END 2025-01-29 11:49 | disposition home or self-care (01) ==
PROVIDERS: PCP Physician Assistant; Visit Provider Family Medicine
DX: J22 Unspecified acute lower respiratory infection (principal); H61.22 Impacted cerumen, left ear